=== PATIENT | female | born 1950 | race Caucasian/White ===

== ENCOUNTER 2020-12-25 04:48 | Day surgery (SDC) | payer OTHER, BC ==
[2020-12-24 14:27] VITALS: BMI 31.5
[2020-12-25 09:32] VITALS: TEMP 97.8
[2020-12-25 12:04] VITALS: BP 152/85; PULSE 54
== END 2020-12-25 12:04 | disposition home or self-care (01) ==
LOC: JASU-ENDO 04:48
PROVIDERS: ATTEND Internal Medicine Gastroenterology
PROC: 0DBP8ZX Excision of Rectum, Via Natural or Artificial Opening Endoscopic, Diagnostic (ICD-10-PCS; principal; 2020-12-25 10:00)
DX: Z12.11 Encounter for screening for malignant neoplasm of colon (principal); K62.1 Rectal polyp; K57.30 Diverticulosis of large intestine without perforation or abscess without bleeding; K64.8 Other hemorrhoids